=== PATIENT | female | born 1980 | race Asian ===

== ENCOUNTER 2017-09-13 21:40 | Emergency (ER) | payer MEDICAID, OTHER ==
[~2017-09-13] VITALS: Ht 152.4 cm; Wt 63.6 kg
[~2017-09-13 21:40] MED LIST: LORA0.5T2 PO
[2017-09-13 22:11] LABS: APPEARANCE,URINE CLOUDY (CLEAR); BILIRUBIN,URINE NEGATIVE (NEGATIVE); GLUCOSE, URINE (UA) NEGATIVE (NEGATIVE); KETONES,URINE NEGATIVE (NEGATIVE); LEUKOCYTE ESTERASE ,URINE MODERATE (NEGATIVE); NITRATE,URINE NEGATIVE (NEGATIVE); OCCULT BLOOD,URINE LARGE (NEGATIVE); PROTEIN,URINE NEGATIVE (NEGATIVE); UROBILINOGEN,URINE 0.2 mg/dL (<=1.0)
[2017-09-13 22:17] LABS: RBC,URINE >100 /HPF (0-2)
[2017-09-13 22:18] LABS: BACTERIA,URINE Rare /HPF (None Seen); HYALINE CASTS, URINE 0-2 /LPF (None Seen); SQUAMOUS EPITHELIAL CELL,UR Rare /LPF (None Seen)
[2017-09-13 22:33] LABS: BASOPHILS % (AUTO) 0.6 % (0.0-2.0); EOSINOPHILS % (AUTO) 1.1 % (1.0-6.0); HEMATOCRIT 41.7 % (36-46); HEMOGLOBIN 14.2 g/dL (12.0-16.0); LYMPHOCYTES # (AUTO) 2.1 K/uL (1.0-4.8); LYMPHOCYTES % (AUTO) 22.1 % (22.0-44.0); MEAN CORPUSCULAR HEMOGLOBIN 28.8 pg (26.0-34.0); MEAN CORPUSCULAR HGB CONC 34.1 G/dL (31.0-37.0); MEAN CORPUSCULAR VOLUME 85 fL (80-100); MONOCYTES # (AUTO) 0.5 K/uL (0.1-1.0); MONOCYTES % (AUTO) 4.8 % (2.0-9.0); NEUTROPHILS # (AUTO) 6.8 K/uL (1.8-7.7); NEUTROPHILS % (AUTO) 71.4 % (40.0-70.0); PLATELET COUNT (AUTO) 223 K/uL (150-450); RED BLOOD CELL COUNT(AUTO) 4.93 MIL/uL (4.00-5.20); RED CELL DISTRIBUTION WIDTH 13.1 % (11.5-14.5)
[2017-09-13 22:46] LABS: ANION GAP 8 mmol/L (8-16); CALCIUM, TOTAL 9.1 mg/dL (8.8-10.5); CARBON DIOXIDE 28 mmol/L (22-29); CHLORIDE 104 mmol/L (98-107); CREATININE 0.79 mg/dL (0.60-1.30); GLOMERULAR FILTR. RATE CALC > 60 mL/min (>60); GLUCOSE,RANDOM 108 mg/dL (70-110); POTASSIUM 3.2 mmol/L (3.5-5.1); SODIUM SERUM 140 mmol/L (136-145); UREA NITROGEN, BLOOD 16 mg/dL (7-18)
[2017-09-13 22:50] LABS: ALANINE AMINOTRANSFERASE 35 U/L (12-78); ALBUMIN 3.2 g/dL (3.4-5.0); ALKALINE PHOSPHATASE 68 U/L (46-116); ASPARTATE AMINOTRANSFERASE 17 U/L (15-37); BILIRUBIN,TOTAL 0.5 mg/dL (0.1-1.0); LIPASE 197 U/L (73-393); TOTAL PROTEIN, SERUM 6.6 g/dL (6.4-8.2)
[2017-09-13] MEDS ORDERED: FentaNYL CITRATE-PF 100 MCG/2 ML VIAL IVP ONE (23:15)
[2017-09-13] MEDS ORDERED: SODIUM CHLORIDE 0.9% 1,000 ML IV ONE (23:15)
[2017-09-13] MEDS ORDERED: ONDANSETRON HCL 4 MG/2 ML VIAL IVP ONE (23:15)
[2017-09-13] MEDS ORDERED: KETOROLAC TROMETHAMINE 30 MG/ML VIAL IVP ONE (23:15)
[2017-09-14] MEDS ORDERED: POTASSIUM CHLORIDE 10% 40 MEQ/30 ML LIQUID UDCUP PO ONE (02:15)
[2017-09-14 02:30] VITALS: BP 124/70
== END 2017-09-14 04:19 | disposition home or self-care (01) ==
LOC: EMS 21:43
DX: R10.30 Lower abdominal pain, unspecified (principal); E87.6 Hypokalemia; R05 Cough; F41.9 Anxiety disorder, unspecified
CPT/HCPCS: 36415; 74176; 80053; 81001; 83690; 84703; 85025; 96374; 96375; 99285; J1885; J2405; J3010; J7030; 96361

== ENCOUNTER 2018-01-19 02:14 | Emergency (ER) | payer OTHER ==
[~2018-01-19] VITALS: Ht 152.4 cm; Wt 61.4 kg
[2018-01-19 04:34] VITALS: BP 129/80
[2018-01-19] MEDS ORDERED: IBUPROFEN 600 MG TABLET PO ONE (05:15)
== END 2018-01-19 05:18 | disposition home or self-care (01) ==
LOC: EMS 02:15
DX: F41.9 Anxiety disorder, unspecified (principal); K08.89 Other specified disorders of teeth and supporting structures

== ENCOUNTER 2019-05-10 09:41 | Emergency (ER) | payer OTHER ==
[2019-05-10] MEDS ORDERED: ESCI10TA PO (10:08)
[2019-05-10 10:22] LABS: BASOPHILS % (AUTO) 0.6 % (0.0-2.0); EOSINOPHILS % (AUTO) 0.8 % (1.0-6.0); HEMATOCRIT 43.2 % (36-46); HEMOGLOBIN 14.3 g/dL (12.0-16.0); LYMPHOCYTES # (AUTO) 1.4 K/uL (1.0-4.8); LYMPHOCYTES % (AUTO) 22.1 % (22.0-44.0); MEAN CORPUSCULAR HEMOGLOBIN 28.5 pg (26.0-34.0); MEAN CORPUSCULAR HGB CONC 33.2 G/dL (31.0-37.0); MEAN CORPUSCULAR VOLUME 86 fL (80-100); MONOCYTES # (AUTO) 0.4 K/uL (0.1-1.0); MONOCYTES % (AUTO) 5.5 % (2.0-9.0); NEUTROPHILS # (AUTO) 4.6 K/uL (1.8-7.7); PLATELET COUNT (AUTO) 220 K/uL (150-450); RED BLOOD CELL COUNT(AUTO) 5.03 MIL/uL (4.00-5.20); RED CELL DISTRIBUTION WIDTH 13.5 % (11.5-14.5)
[2019-05-10 10:23] VITALS: BP 103/71
[2019-05-10 10:37] LABS: ANION GAP 5 mmol/L (8-16); CALCIUM, TOTAL 8.9 mg/dL (8.8-10.5); CARBON DIOXIDE 31 mmol/L (22-29); CHLORIDE 103 mmol/L (98-107); GLOMERULAR FILTR. RATE CALC > 60 mL/min (>60); GLUCOSE,RANDOM 76 mg/dL (70-110); POTASSIUM 3.6 mmol/L (3.5-5.1); SODIUM SERUM 139 mmol/L (136-145); UREA NITROGEN, BLOOD 13 mg/dL (7-18)
[2019-05-10 10:45] LABS: B-TYPE NATRIURETIC PEPTIDE 6 pg/mL (0-100)
[2019-05-10 10:48] LABS: ALANINE AMINOTRANSFERASE 33 U/L (12-78); ALBUMIN 3.5 g/dL (3.4-5.0); ALKALINE PHOSPHATASE 76 U/L (46-116); ASPARTATE AMINOTRANSFERASE 21 U/L (15-37); BILIRUBIN,TOTAL 0.5 mg/dL (0.1-1.0); HCG,QUANTITATIVE < 1 mIU/mL (0-6); TOTAL PROTEIN, SERUM 6.6 g/dL (6.4-8.2)
== END 2019-05-10 11:07 | disposition home or self-care (01) ==
LOC: EMS 09:44
DX: R07.9 Chest pain, unspecified (principal); F41.9 Anxiety disorder, unspecified
CPT/HCPCS: 93005

== ENCOUNTER 2019-05-16 14:31 | Emergency (ER) | payer OTHER ==
[~2019-05-16] VITALS: Ht 152.4 cm; Wt 60.4 kg
[~2019-05-16 14:31] MED LIST changes: +ESCI10TA PO; -LORA0.5T2 PO
[2019-05-16] MEDS ORDERED: KETOROLAC TROMETHAMINE 30 MG/ML VIAL IVP ONE (15:15)
[2019-05-16 15:30] LABS: BASOPHILS % (AUTO) 0.7 % (0.0-2.0); EOSINOPHILS % (AUTO) 1.1 % (1.0-6.0); HEMATOCRIT 40.1 % (36-46); HEMOGLOBIN 13.3 g/dL (12.0-16.0); LYMPHOCYTES # (AUTO) 1.7 K/uL (1.0-4.8); LYMPHOCYTES % (AUTO) 24.7 % (22.0-44.0); MEAN CORPUSCULAR HEMOGLOBIN 28.5 pg (26.0-34.0); MEAN CORPUSCULAR HGB CONC 33.1 G/dL (31.0-37.0); MEAN CORPUSCULAR VOLUME 86 fL (80-100); MONOCYTES # (AUTO) 0.3 K/uL (0.1-1.0); NEUTROPHILS # (AUTO) 4.6 K/uL (1.8-7.7); NEUTROPHILS % (AUTO) 68.5 % (40.0-70.0); PLATELET COUNT (AUTO) 259 K/uL (150-450); RED BLOOD CELL COUNT(AUTO) 4.65 MIL/uL (4.00-5.20); RED CELL DISTRIBUTION WIDTH 13.2 % (11.5-14.5)
[2019-05-16 16:00] LABS: ANION GAP 9 mmol/L (8-16); CALCIUM, TOTAL 8.9 mg/dL (8.8-10.5); CARBON DIOXIDE 26 mmol/L (22-29); CHLORIDE 107 mmol/L (98-107); CREATININE 0.74 mg/dL (0.60-1.30); GLOMERULAR FILTR. RATE CALC > 60 mL/min (>60); GLUCOSE,RANDOM 101 mg/dL (70-110); POTASSIUM 3.7 mmol/L (3.5-5.1); SODIUM SERUM 142 mmol/L (136-145); UREA NITROGEN, BLOOD 13 mg/dL (7-18)
[2019-05-16 16:06] LABS: ALANINE AMINOTRANSFERASE 30 U/L (12-78); ALBUMIN 3.1 g/dL (3.4-5.0); ALKALINE PHOSPHATASE 80 U/L (46-116); ASPARTATE AMINOTRANSFERASE 17 U/L (15-37); BILIRUBIN,TOTAL 0.4 mg/dL (0.1-1.0); CREATINE KINASE, TOTAL ONLY 61 U/L (26-192); TOTAL PROTEIN, SERUM 6.3 g/dL (6.4-8.2)
[2019-05-16 16:18] LABS: B-TYPE NATRIURETIC PEPTIDE 9 pg/mL (0-100)
[2019-05-16] MEDS ORDERED: ACETAMINOPHEN 500 MG TABLET PO ONE (17:15)
[2019-05-16 18:58] VITALS: BP 102/67
== END 2019-05-16 21:13 | disposition home or self-care (01) ==
LOC: EMS 14:33
DX: R07.89 Other chest pain (principal); R20.0 Anesthesia of skin; F41.9 Anxiety disorder, unspecified
CPT/HCPCS: 36415; 71045; 80053; 82550; 83880; 84484; 85025; 93005; 96374; 99285; J1885

== ENCOUNTER 2023-12-09 18:35 | Emergency (ER) | payer OTHER ==
[~2023-12-09] VITALS: Ht 154.9 cm; Wt 84.1 kg
[~2023-12-09 18:35] MED LIST changes: +ESCI-8 PO; -ESCI10TA PO
[2023-12-09] MEDS ORDERED: ESCI20TA37 PO (18:39)
[2023-12-09] MEDS ORDERED: NALT50TA6 PO (18:39)
[2023-12-09] MEDS ORDERED: CETI10TA58 PO (18:41)
[2023-12-09 18:42] VITALS: TEMP 98.2
[2023-12-09] MEDS: ALBUTEROL SULFATE HFA 90 MCG/PUFF 8 GM INHALER IH ONE (19:24)
[2023-12-09] MEDS: DEXAMETHASONE 4 MG TABLET PO ONE (19:25)
[2023-12-09 19:50] LABS: COVID AG,FIA SOURCE NASAL SWAB
[2023-12-09 20:09] LABS: SARS-COV2 (COVID) ANTIGEN,FIA Negative (Negative)
[2023-12-09] MEDS: OXYMETAZOLINE HCL 0.05% 15 ML NASAL SPRAY NASAL ONE (20:19)
[2023-12-09 20:36] VITALS: BP 136/86; PULSE 101; RESP 18; O2SAT 99
== END 2023-12-09 20:46 | disposition home or self-care (01) ==
LOC: EMS 18:35
DX: J45.909 Unspecified asthma, uncomplicated (principal); R09.81 Nasal congestion; F41.9 Anxiety disorder, unspecified; Z91.013 Allergy to seafood; Z91.018 Allergy to other foods; Z79.899 Other long term (current) drug therapy; Z20.822 Contact with and (suspected) exposure to COVID-19
CPT/HCPCS: 99283; 87426; 94640; J8540; J3535